=== PATIENT | female | born 2000 | race Two or more races ===

== ENCOUNTER 2024-02-21 19:12 | Observation (INO) | payer MEDICAID, SELFPAY ==
[2024-02-21] VITALS (20 sets, daily range): BP systolic 110; BP diastolic 62; PULSE 69–87; O2SAT 99–100; BMI 29.0
[2024-02-21] MEDS: ACETAMINOPHEN 325 MG TABLET 650 MG PO (20:23)
== END 2024-02-21 21:38 | disposition home or self-care (01) ==
PROVIDERS: Admitting Provider Student in an Organized Health Care Education/Training Program; Visit Provider Student in an Organized Health Care Education/Training Program
DX: O26.892 Other specified pregnancy related conditions, second trimester (principal); R10.2 Pelvic and perineal pain; Z3A.26 26 weeks gestation of pregnancy
CPT/HCPCS: 59025; 59899; G0378; A9270

== ENCOUNTER 2024-05-01 12:53 | Observation (INO) | payer MEDICAID, SELFPAY ==
[2024-05-01 13:09] VITALS: BP 109/73; PULSE 118
[2024-05-01 13:12] VITALS: BP 109/73; PULSE 118; RESP 18; RESP 99; TEMP 36.9
[2024-05-01 13:13] VITALS: BMI 29.8
[2024-05-01 13:16] VITALS: TEMP 36.9
[2024-05-01 13:55] LABS: ROM Kit Lot # 57809118; ROM Swab Mixed By: NUNEE1; Swb Mxed in Solvent 1 min? Yes
[2024-05-01 13:56] LABS: Rupture of Fetal Membranes Negative (Negative)
== END 2024-05-01 14:08 | disposition home or self-care (01) ==
PROVIDERS: Admitting Provider Specialist; PCP Family Medicine; Visit Provider Specialist
DX: Z34.83 Encounter for supervision of other normal pregnancy, third trimester (principal); Z3A.36 36 weeks gestation of pregnancy
CPT/HCPCS: 59025; 59899; 84112

== ENCOUNTER 2024-05-17 05:17 | Inpatient (IN) | payer MEDICAID, SELFPAY ==
--- NOTE | 2024-05-16 19:59 | ESHP_ITS ---
RE: LANE [facility]IAZ : 2000 DATE OF ADMISSION: 05/17/2024 HISTORY OF PRESENT ILLNESS: This is a 23-year-old 3, para 1-0-1-1 with a due date of 05/24/2024 with intrauterine at 39 weeks who presents for induction of labor. The patient's care is complicated by cholestasis of . She has been taking Ursodiol. Her most recent bile acid level was 9.8. The patient had a positive urine culture in the first trimester due to group B strep. The patient's care was also complicated by iron deficiency anemia. She has had a few visits to the maternal- unit thinking that she was leaking fluid, but workups confirmed that she was not ruptured in both cases. ALLERGIES: NO KNOWN DRUG ALLERGIES. MEDICATIONS: 1. multivitamin 1 tablet p.o. daily. 2. Ursodiol 300 mg 1 tablet p.o. b.i.d. 3. Ferrous sulfate 325 mg 1 tablet p.o. b.i.d. 4. Omeprazole 20 mg 1 tablet p.o. daily. 5. vitamin 1 tablet p.o. daily. SOCIAL HISTORY: She denies any alcohol, drug use, or smoking. PAST MEDICAL HISTORY: Cholestasis of , gastroesophageal reflux disease, urinary tract infection 11/09/2023 due to group B strep, urinary tract infection 01/18/2024 due to group B strep and strep viridans, urinary tract infection 12/07/2023 due to Staph aureus and strep viridans, iron deficiency anemia. FAMILY HISTORY: Heart disease and hypothyroidism. OBSTETRIC HISTORY: 2019, 41 week, normal vaginal delivery, 8 pound 1 ounce male. No complications. 04/2019, 6-week termination of with misoprostol and mifepristone. REVIEW OF SYSTEMS: She denies any chest pain, palpitations, cough, fever, shortness of breath, or lower extremity pain. PHYSICAL EXAMINATION: VITAL SIGNS: Blood pressure 107/68, heart rate 88, respirations 18, temperature 98.2, weight 162 pounds. HEENT: Oropharynx and sclerae are clear. LUNGS: Clear to auscultation bilaterally. HEART: Regular rate and rhythm. ABDOMEN: [place] consistent with estimated weight of 7 pounds. PELVIC: See RN notes. EXTREMITIES: Nontender. SKIN: No gross rashes or lesion. NEUROLOGIC: No focal deficit. ASSESSMENT AND PLAN: Intrauterine at 39 weeks, cholestasis of , induction of labor. Anticipate spontaneous vaginal delivery. Informed consent was obtained. The patient was made aware of the risks, complications, alternatives, and benefits of the proposed procedure and she agrees. She is aware of the risk of operative vaginal delivery and delivery and agrees with these modes of delivery if indicated. DT: 19:17:58 TT: 19:58:00 Ref: [id number] - TID: [id number] MTDD
[2024-05-17] VITALS (215 sets, daily range): BP systolic 82–141; BP diastolic 48–84; PULSE 45–138; RESP 18–21; TEMP 36.6–37.2; O2SAT 90–100; BMI 30.4
[2024-05-17 06:33] LABS: Basophils % (Auto) 0 % (0-2.5); Eosinophils # (Auto) 0.1 Thou/mm3 (0.0-0.5); Eosinophils % (Auto) 1 % (0-10); Hemoglobin 11.2 g/dL (12.0-16.0); Immature Granulocytes % (Auto) 0 % (0-0); Immature Granulocytes Auto 0.02 Thou/mm3 (0.00-0.00); Lymphocytes # (Auto) 2.4 Thou/mm3 (1.0-4.8); Lymphocytes % (Auto) 36 % (10-50); Mean Corpuscular HGB Conc 33.9 g/dl (31.0-37.0); Mean Corpuscular Volume 80 fL (80-100); Monocytes # (Auto) 0.4 Thou/mm3 (0.0-0.8); Monocytes % (Auto) 5 % (0-12); Neutrophils # (Auto) 3.7 Thou/mm3 (1.8-7.7); Neutrophils % (Auto) 57 % (37-80); Nucleated Red Blood Cell % 0 /100 WBC (0); Platelet Count 224 Thou/mm3 (140-440); RDW Standard Deviation 42.7 fL (36.4-46.3); Red Blood Count 4.15 Miln/mm3 (4.00-5.20); White Blood Count 6.5 Thou/mm3 (3.6-11.0)
--- NOTE | 2024-05-17 06:42 | XR_ITS ---
Examination: Complete OB ultrasound greater than 14 weeks Date and time of exam: 2024 0124 hours INDICATIONS: Labor evaluation, induction scheduled today Findings: Viable intrauterine single fetus with single amniotic sac presentation cephalic Cardiac motion 147 BPM Placenta anterior grade 2 Umbilical cord insertion 3 vessel seen Amniotic fluid index 11.9 cm Cervix 4.6 cm Ovaries obscured by bowel gas Composite estimated gestational age based on BPD, head circumference, abdominal circumference, femur length is 36 weeks 0 days Estimated weight 2896.6 g. Survey of intracranial anatomy, spinal anatomy, abdominal anatomy, four-chamber heart performed with no abnormalities identified. Impression: Viable intrauterine gestation cephalic presentation.
[2024-05-17 07:10] LABS: Syphilis Nonreactive (Nonreactive)
[2024-05-17 07:24] LABS: Basophils % (Auto) 0 % (0-2.5); Eosinophils # (Auto) 0.1 Thou/mm3 (0.0-0.5); Eosinophils % (Auto) 1 % (0-10); Hematocrit 29.3 % (36.0-46.0); Hemoglobin 9.8 g/dL (12.0-16.0); Immature Granulocytes % (Auto) 0 % (0-0); Immature Granulocytes Auto 0.02 Thou/mm3 (0.00-0.00); Lymphocytes # (Auto) 2.5 Thou/mm3 (1.0-4.8); Lymphocytes % (Auto) 35 % (10-50); Mean Corpuscular HGB Conc 33.4 g/dl (31.0-37.0); Mean Corpuscular Hemoglobin 26.9 pg (25.0-35.0); Mean Corpuscular Volume 81 fL (80-100); Monocytes # (Auto) 0.5 Thou/mm3 (0.0-0.8); Monocytes % (Auto) 6 % (0-12); Neutrophils # (Auto) 4.1 Thou/mm3 (1.8-7.7); Neutrophils % (Auto) 57 % (37-80); Nucleated Red Blood Cell % 0 /100 WBC (0); Platelet Count 195 Thou/mm3 (140-440); RDW Standard Deviation 43.4 fL (36.4-46.3); Red Blood Count 3.64 Miln/mm3 (4.00-5.20); White Blood Count 7.1 Thou/mm3 (3.6-11.0)
[2024-05-17 07:34] LABS: Fibrinogen 337 mg/dL (175-375); Partial Thromboplastin Time 24.3 Seconds (22.0-36.0); Prothrombin Time 10.5 Seconds (9.0-12.2)
[2024-05-17 07:47] LABS: Alanine Aminotransferase < 7 U/L (10-49); Albumin, Serum 3.4 gm/dL (3.5-5.0); Albumin/Globulin Ratio 1.5 (1.2-2.2); Alkaline Phosphatase 162 U/L (46-116); Anion Gap 8 (7-16); Aspartate Amino Transferase 10 U/L (0-34); BUN/Creatinine Ratio 13 Ratio (12-20); Bilirubin,Total 0.5 mg/dL (0.3-1.2); Blood Urea Nitrogen 9 mg/dL (9-23); Calcium 8.5 mg/dL (8.3-10.6); Carbon Dioxide 21.6 mMol/L (20.0-31.0); Chloride 108 mMol/L (98-107); Creatinine (Component) 0.7 mg/dL (0.6-1.3); Estimated Creatinine Clearance 146.1 mL/min (>60); Globulin 2.3 gm/dL (2.3-3.5); Glucose 93 mg/dL (74-106); Osmolality,Calculated 274 (275-295); Potassium 3.8 mMol/L (3.4-5.1); Sodium 138 mMol/L (136-145); Total Protein 5.7 gm/dL (5.7-8.2); Uric Acid 3.5 mg/dL (3.1-7.8); eGFR > 60 See Note
[2024-05-17 08:30] LABS: Collection Type, Urine Clean Catch
[2024-05-17 08:50] LABS: Bilirubin,Urine Negative (Negative); Blood,Urine Negative (Negative); Clarity,Urine Turbid (Clear/Hazy); Color,Urine Yellow (Lt Yel-Yel); Glucose, Urine Trace (Negative); Hyaline Casts,Urine < 1 /hpf (0-1); Ketones,Urine Trace (Negative); Leukocyte Esterase,Urine Positive (Negative); Nitrite,Urine Negative (Negative); Protein,Urine 1+ (Neg - Trace); RBC,Urine 2 /hpf (0-3); Specific Gravity,Urine 1.027 (1.001-1.035); Squamous Epithelial Cell,Urine 10 /hpf (0-5); WBC,Urine 38 /hpf (0-5)
[2024-05-17] MEDS: ursodioL 300 MG CAPSULE PO (10:27)
[2024-05-17] MEDS: DINOPROSTONE 10 MG VAG.SUPP VAGINAL (10:27)
--- NOTE | 2024-05-17 10:41 | PD.LDPN ---
Documentation for date of: 05/17/24 OB Labor Progress Note Pain Control Comments: None needed Pelvic Exam Comments: See RN notes Contractions Contraction frequency: infrequent Status status: Category l Assessment and Plan Comments: Cervical ripening followed by induction of labor for cholestasis at 39 weeks.
[2024-05-17] MEDS: fentaNYL CIT INJ 50 mCg/ML AMP 2ML 100 MCG IV ×3 (12:16→19:45)
[2024-05-17] MEDS: RINGERS LACTATED 1000 ML 1,000 ML 125 ML IV (19:47)
[2024-05-17] MEDS: MINERAL OIL 30 ML UDC TOP (21:31)
[2024-05-17] MEDS: OXYTOCIN in NS 20 units 20 UNIT/1,000 ML BAG 999 UNIT IV (21:36)
[2024-05-17] MEDS: BENZO/LANO/ALOE (Dermoplast) 60 GM CAN 1 SPRAY TOP (22:12)
[2024-05-18 03:30] VITALS: BP 104/65; PULSE 72; RESP 18; TEMP 36.6; O2SAT 96
[2024-05-18 05:48] LABS: Basophils % (Auto) 0 % (0-2.5); Eosinophils % (Auto) 0 % (0-10); Hematocrit 29.1 % (36.0-46.0); Hemoglobin 9.6 g/dL (12.0-16.0); Immature Granulocytes % (Auto) 0 % (0-0); Immature Granulocytes Auto 0.03 Thou/mm3 (0.00-0.00); Lymphocytes # (Auto) 1.6 Thou/mm3 (1.0-4.8); Lymphocytes % (Auto) 15 % (10-50); Mean Corpuscular Hemoglobin 26.8 pg (25.0-35.0); Mean Corpuscular Volume 81 fL (80-100); Monocytes # (Auto) 0.8 Thou/mm3 (0.0-0.8); Monocytes % (Auto) 7 % (0-12); Neutrophils # (Auto) 8.5 Thou/mm3 (1.8-7.7); Neutrophils % (Auto) 78 % (37-80); Nucleated Red Blood Cell % 0 /100 WBC (0); Platelet Count 185 Thou/mm3 (140-440); RDW Standard Deviation 43.8 fL (36.4-46.3); Red Blood Count 3.58 Miln/mm3 (4.00-5.20)
--- NOTE | 2024-05-18 07:46 | PD.LDDELS ---
Data ([facility]) Data Hx Section: No : 3 Para: 1 Term: 1 : 0 : 1 Delivery Data ([facility]) Labor Data Induction: Yes ROM Date: 05/17/24 ROM Time: 19:56 Rupture Type: SROM Amniotic Fluid: Clear Delivery Data EDC: 05/24/24 EDC calculated by:: LMP/early US confirmation Labor Onset Stage 1 Date: 05/17/24 Labor Onset Stage 1 Time: 19:45 Labor Onset Stage 2 Date: 05/17/24 Labor Onset Stage 2 Time: 20:58 Delivery Date: 05/17/24 Delivery Time: 21:35 Gestational age (weeks): 39 Gestational age (days): 0 Placenta Delivery Date: 05/17/24 Placenta Delivery Time: 21:38 Delivered by: Werner Ford Delivery nurse: Leann Keys Other staff at delivery: 2nd Nurse Other staff at delivery: Elsa Reed Delivery Method Delivery: Vaginal Delivery Type: Spontaneous Presentation: Vertex Position: OA Anesthesia Type Primary Anesthesia: Epidural Secondary Anesthesia: Local Placenta Placenta Delivery: Spontaneous Placenta Cultures Obtained: No Placenta Sent for Examination: No Cord Sample: Cord Blood Obtained EBL Estimated blood loss (ml): 200 Umbilical Cord Umbilical Vessels: 3 Nuchal Cord: Not Applicable Body Cord: Not Applicable Additional Procedures None Complications Complications: None [place] Data ([facility]) Data Infant Gender: Female Infant Weight Grams: 3140 1 Minute Total: 9 5 Minute Total: 9
--- NOTE | 2024-05-18 07:48 | PD.LDDS ---
DS: Providers Provider Date of admission: 05/17/24 05:17 Primary care physician: Miah Matute MD Admitting Provider: Werner Ford MD Attending Provider on Admission: Werner Ford MD Consults: 05/18/24 00:02 Referral Routine Comment: Attending Provider on DC: Werner Ford MD Discharging Provider: Werner Ford MD DS: Diagnosis Problem List Completed Was Problem List Reviewed/Reconciled?: Yes Summary/Hosp Course Time Spent with Patient Time attestation: Total time spent providing and/or coordinating discharge services: Exam Vital Signs Temp Pulse Resp BP Pulse Ox O2 Del Method 97.9 F 72 18 104/65 96 Room Air 05/18/24 03:30 05/18/24 03:30 05/18/24 03:30 05/18/24 03:30 05/18/24 03:30 05/18/24 03:30 Discharge Plan Plan Patient Disposition: HOME (Self Care) Patient condition on transfer: Stable Prescriptions/Referrals Prescriptions/Med Rec: New ibuprofen 600 mg tablet 600 mg PO Q6H PRN (Reason: pain) Qty: 30 0RF Continued vit-iron fum-folic ac [ Vitamin with Minerals] 28 mg iron- 800 mcg Tablet 1 tab PO QDAY Discontinued ondansetron 4 mg tablet,disintegrating 4 mg PO QDAY Patient Comments: TAKE 1 TABLET BY MOUTH EVERY EIGHT HOURS NEEDED DIRECTED FOR NAUSEA AND VOMITING ursodiol 300 mg capsule 300 mg PO BID Patient Comments: TAKE 1 CAPSULE BY MOUTH TWICE A DAY Referrals: Miah Matute MD [Primary Care Provider] - Patient/Caregiver Discharge Instructions Discharge Activity: activity as tolerated Other Discharge Activity Instructions:: Follow up office 6 weeks Print Language: Armenian Stand Alone Forms: [facility] Award Info., Patient Portal Info Letter Discharge Order Discharge Orders: Discharge (Routine); Ordered 05/18/24 Ordered By: Werner Ford Planned Discharge Date 05/18/24
[2024-05-18 08:30] VITALS: BP 95/56; PULSE 85; RESP 20; TEMP 36.6; O2SAT 97
--- NOTE | 2024-05-18 08:39 | ESPR_ITS ---
RE: LANE [facility]IAZ : 2000 DATE OF SERVICE: 05/18/2024 SUBJECTIVE: day #1, the patient denies any problem or complaint. She is voiding. She is ambulating. She is tolerating diet. She is passing flatus. She denies any excessive vaginal bleeding. She denies any dizziness or lightheadedness. She denies any chest pain, palpitations, shortness of breath, or lower extremity pain. She denies any depression or anxiety. OBJECTIVE: Vital Signs: Blood pressure 104/65, heart rate 72, respirations 18, temperature 97.9, and pulse oximetry 96% on room air. Lungs: Clear to auscultation bilaterally. Heart: Regular rate and rhythm. Abdomen: Incision clear and intact. Fundus is firm. Extremities: Nontender. LABORATORY DATA: Hemoglobin pre-delivery is 9.8, post-delivery is 9.6. ASSESSMENT: day #1 status post spontaneous vaginal delivery. PLAN: Discharge home. Discharge instructions were given. Followup in the office in 6 weeks. DT: 07:45:10 TT: 08:38:00 Ref: [id number] - TID: [id number]
[2024-05-18 13:00] VITALS: BP 97/58; PULSE 80; RESP 16; TEMP 36.7; O2SAT 97
[2024-05-18 19:45] VITALS: BP 99/63; PULSE 82; RESP 16; TEMP 36.8; O2SAT 96
[2024-05-19 03:15] VITALS: BP 97/60; PULSE 69; RESP 16; TEMP 36.7; O2SAT 98
[2024-05-19 08:00] VITALS: BP 99/64; PULSE 75; RESP 16; TEMP 36.6; O2SAT 98
--- NOTE | 2024-05-19 14:59 | ESPR_ITS ---
RE: LANE [facility]IAZ : 2000 DATE OF SERVICE: 05/19/2024 S: day #2, the patient denies any problem or complaint. Denies any itching. O: Vital Signs: Blood pressure 199/64 mmHg, heart rate 75, respirations 16, temperature 97.8 degrees Celsius, pulse oximetry 98% on room air. Abdomen: Fundus is firm. Extremities: Nontender. A: day #2, status post spontaneous vaginal delivery. P: Discharge home. Discharge instructions given. Follow up in the office in 6 weeks. DT: 13:09:22 TT: 14:57:00 Ref: [id number] - TID: [id number]
== END 2024-05-19 14:30 | disposition home or self-care (01) | DRG 560 ==
LOC: S4SX 21:51 → S4NX 23:38
PROVIDERS: Admitting Provider Specialist; PCP Family Medicine; Visit Provider Specialist
DX: O26.643 Intrahepatic cholestasis of pregnancy, third trimester (principal); E78.79 Other disorders of bile acid and cholesterol metabolism; K76.89 Other specified diseases of liver; Z3A.39 39 weeks gestation of pregnancy; Z37.0 Single live birth; O99.02 Anemia complicating childbirth; D50.9 Iron deficiency anemia, unspecified
CPT/HCPCS: 36415; 59409; 76805; 80053; 81001; 84550; 85025; 85384; 85610; 85730; 86780; 86850; 86900; 86901; 94762; J2590; J2795; J3010; J7120; A9270